=== PATIENT | male | born 1950 | race Caucasian/White ===

== ENCOUNTER 2020-03-03 15:22 | Observation (INO) | payer MEDICARE ==
--- NOTE | 2020-03-03 16:51 | ER Document Report ---
ED Medical Screen (RME) - General Chief Complaint: Weakness Stated Complaint: RIGHT LEG WEAKNESS, DIZZINESS Time Seen by Provider: 03/03/20 16:41 Mode of Arrival: Wheelchair Information source: Patient Notes: HPI; 69-year-old male presents to the emergency room complaining of a cough for the past 3 days. States today he started having some dizziness earlier today states he felt like the room was spinning. States while walking to the bathroom he felt very uneasy on his feet states he stumbled hit his right arm on a wall but caught himself from falling. States ever since he has felt like his right leg is weak but denies pain. States he does have a history of peripheral vascular disease to the right leg. Is on blood thinners secondary to CABG. Has not missed any of his medications. He denies any nausea, vomiting no chest pain, no shortness of breath no difficulty breathing. States he is able to walk but feels off balance when he walks. He denies any COVID-19 exposure. PE: Alert and oriented x3. Negative fast exam. Lungs: Clear to auscultation without rales, rhonchi, wheezes. Heart: Regular rate rhythm without murmurs, rubs, gallops. Able to fully lift and extend right leg without difficulty. Full sensation to painful stimuli bilateral upper and lower extremities. I have greeted and performed a rapid initial assessment of this patient. A comprehensive ED assessment and evaluation of the patient, analysis of test results and completion of the medical decision making process will be conducted by additional ED providers. I have specifically instructed the patient or family members with the patient to immediately return to any nursing staff should anything change in the patient's condition or with their chief complaint. TRAVEL OUTSIDE OF THE [place] IN LAST 30 DAYS: No - Related Data Allergies/Adverse Reactions: No Known Allergies Allergy (Unverified 03/03/20 16:33) Physical Exam - Vital signs Vitals: Temp Pulse Resp BP Pulse Ox 98.1 F 72 16 140/77 H 97 03/03/20 16:27 03/03/20 16:27 03/03/20 16:27 03/03/20 16:27 03/03/20 16:27 Course - Vital Signs Vital signs: Temp Pulse Resp BP Pulse Ox 98.1 F 72 16 140/77 H 97 03/03/20 16:27 03/03/20 16:27 03/03/20 16:27 03/03/20 16:27 03/03/20 16:27
--- NOTE | 2020-03-03 17:16 | RADIOLOGY REPORT (SQ) ---
EXAM DESCRIPTION: CT HEAD WITHOUT IMAGES COMPLETED DATE/TIME: 03/03/2020 5:03 pm REASON FOR STUDY: dizzy COMPARISON: None. TECHNIQUE: Axial images acquired through the brain without intravenous contrast. Images reviewed wi th bone, brain and subdural windows. Additional sagittal and coronal reconstructions were generated. Images stored on PACS. All CT scanners at this facility use dose modulation, iterative reconstruction, and/or weight based d osing when appropriate to reduce radiation dose to as low as reasonably achievable (ALARA). [facility]: Dose Right [facility]: CareDose [facility]: Dose Right [facility]: Teradose 4D [facility]: Smart TechnoSpin RADIATION DOSE: CT Rad equipment meets quality standard of care and radiation dose reduction techniq ues were employed. CTDIvol: 53.2 mGy. DLP: 964 mGy-cm. mGy. LIMITATIONS: None. FINDINGS: VENTRICLES: Prominent. CEREBRUM: No masses. No hemorrhage. No midline shift. Areas of low density in the white matter mos t likely due to chronic micro-vascular ischemic change. No evidence for acute infarction. CEREBELLUM: No masses. No hemorrhage. Focal encephalomalacia involving the right inferior cerebella r hemisphere, consistent with sequela of remote ischemic injury. No evidence for acute infarction. EXTRAAXIAL SPACES: Mild age-related involutional change. No fluid collections. No masses. ORBITS AND GLOBE: No intra- or extraconal masses. Normal contour of globe without masses. CALVARIUM: No fracture. PARANASAL SINUSES: No fluid or mucosal thickening. SOFT TISSUES: No mass or hematoma. OTHER: No other significant finding. IMPRESSION: No acute intracranial abnormality. Right cerebellar encephalomalacia, consistent with s equela previous ischemic injury. Background of mild chronic microvascular and age-related involution al change. EVIDENCE OF ACUTE STROKE: NO. TECHNICAL DOCUMENTATION: JOB ID: [id number] Quality ID # [id number]: Final reports with documentation of one or more dose reduction techniques (e.g., Au tomated exposure control, adjustment of the mA and/or kV according to patient size, use of iterative reconstruction technique) 2010 [employer]- All Rights Reserved Reading location - IP/workstation name: [email or web address]
--- NOTE | 2020-03-03 17:36 | RADIOLOGY REPORT (SQ) ---
EXAM DESCRIPTION: CHEST 2 VIEWS IMAGES COMPLETED DATE/TIME: 03/03/2020 5:21 pm REASON FOR STUDY: cough COMPARISON: None. EXAM PARAMETERS: NUMBER OF VIEWS: two views TECHNIQUE: Digital Frontal and Lateral radiographic views of the chest acquired. RADIATION DOSE: NA LIMITATIONS: none FINDINGS: LUNGS AND PLEURA: No opacities, masses or pneumothorax. No pleural effusion. MEDIASTINUM AND HILAR STRUCTURES: Ectatic ascending aorta. HEART AND VASCULAR STRUCTURES: Heart normal size. No evidence for failure. BONES: No acute findings. HARDWARE: Midline surgical changes. OTHER: No other significant finding. IMPRESSION: No evidence of acute cardiopulmonary abnormality. TECHNICAL DOCUMENTATION: JOB ID: [id number] 2010 [employer]- All Rights Reserved Reading location - IP/workstation name: [email or web address]
[2020-03-03 18:34] LABS: ABSOLUTE BASOPHILS # (AUTO) 0.1 10^3/uL (0.0-0.2); ABSOLUTE EOSINOPHILS # (AUTO) 0.1 10^3/uL (0.0-0.6); ABSOLUTE LYMPHOCYTES (AUTO) 1.9 10^3/uL (0.5-4.7); ABSOLUTE MONOCYTES (AUTO) 0.6 10^3/uL (0.1-1.4); ABSOLUTE NEUT (AUTO) 6.6 10^3/uL (1.7-8.2); BASOPHILS % (AUTO) 0.6 % (0-2); HEMATOCRIT 44.8 % (37.9-51.0); LYMPHOCYTES % (AUTO) 20.7 % (13-45); MEAN CORPUSCULAR HEMOGLOBIN 30.5 pg (27.0-33.4); MEAN CORPUSCULAR HGB CONC 33.5 g/dL (32.0-36.0); MEAN CORPUSCULAR VOLUME 91 fl (80-97); MONOCYTES % (AUTO) 6.5 % (3-13); PLATELET COUNT 230 10^3/uL (150-450); RED BLOOD COUNT 4.91 10^6/uL (4.35-5.55); RED CELL DISTRIBUTION WIDTH 13.7 % (11.5-14.0); SEGMENTED NEUTROPHILS % (AUTO) 71.2 % (42-78); TOTAL CELLS COUNTED % (AUTO) 100 %; WHITE BLOOD COUNT 9.3 10^3/uL (4.0-10.5)
[2020-03-03 18:49] LABS: INTERNATIONAL RATION (INR) 1.02; PROTHROMBIN TIME 13.6 SEC (11.4-15.4)
[2020-03-03 18:53] LABS: ALBUMIN 4.4 g/dL (3.5-5.0); ALKALINE PHOSPHATASE 45 U/L (38-126); ANION GAP 11 (5-19); ASPARTATE AMINO TRANSFERASE 36 U/L (17-59); BILIRUBIN,DIRECT 0.2 mg/dL (0.0-0.4); BILIRUBIN,TOTAL 0.8 mg/dL (0.2-1.3); BLOOD UREA NITROGEN 15 mg/dL (7-20); CALCIUM 10.2 mg/dL (8.4-10.2); CARBON DIOXIDE 26 mmol/L (22-30); CHLORIDE 105 mmol/L (98-107); GLUCOSE 97 mg/dL (75-110); POTASSIUM 4.1 mmol/L (3.6-5.0); TOTAL PROTEIN 7.7 g/dL (6.3-8.2)
--- NOTE | 2020-03-03 21:37 | EKG REPORT ---
SEVERITY:- ABNORMAL ECG - ATRIAL FIBRILLATION, V-RATE 51-87 LEFT BUNDLE BRANCH BLOCK : Confirmed by: Arvind Denny MD 03-Mar-2020 21:36:18
[2020-03-04 01:27] LABS: APPEARANCE,URINE CLEAR; BILIRUBIN,URINE NEGATIVE (NEGATIVE); COLOR,URINE YELLOW; GLUCOSE, URINE >=500 mg/dL (NEGATIVE); KETONES,URINE NEGATIVE (NEGATIVE); LEUKOCYTE ESTERASE,URINE NEGATIVE (NEGATIVE); NITRITE,URINE NEGATIVE (NEGATIVE); PROTEIN,URINE NEGATIVE (NEGATIVE); URINE SPECIFIC GRAVITY 1.028; UROBILINOGEN,URINE NEGATIVE mg/dL (<2.0)
--- NOTE | 2020-03-04 03:49 | ER Document Report ---
ED General - General Chief Complaint: Numbness Stated Complaint: RIGHT LEG WEAKNESS, DIZZINESS Time Seen by Provider: 03/03/20 16:41 Mode of Arrival: Wheelchair Information source: Patient Notes: Patient presents to the ER for evaluation of sudden onset of dizziness with poor depth perception and right leg heaviness that began approximately 1 hour prior to arrival. According to the patient, the symptoms had resolved by the time he got to the hospital. The pit note indicates that he felt like the room was spinning but he tells me that this is not the case. He states he feels as if the room was moving up and down rapidly. The patient initially said he was on blood thinners but later states that his medication is metoprolol and is not a blood thinner. He has had an PR and does have a history of a CABG. He does not have a history of atrial fibrillation. He denies shortness of breath. He denies chest pain. He denies nausea or vomiting. He denies fever. He says he has had a mild cough intermittently over the last several days but that this has not been a significant issue. No known COVID-19 exposures. Nursing notes reviewed and past medical, social, and family histories reviewed and validated. TRAVEL OUTSIDE OF THE [place] IN LAST 30 DAYS: No - Related Data Allergies/Adverse Reactions: No Known Allergies Allergy (Verified 03/03/20 20:20) Past Medical History - General Information source: Patient - Social History Smoking Status: Never Smoker Cigarette use (# per day): No Chew tobacco use (# tins/day): No Frequency of alcohol use: None Drug Abuse: None Lives with: Family Family History: Reviewed & Not Pertinent Patient has suicidal ideation: No Patient has homicidal ideation: No - Past Medical History Cardiac Medical History: Reports: Hx Coronary Artery Disease, Hx Heart Attack, Hx Hypertension Pulmonary Medical History: Reports: None EENT Medical History: Reports: None Neurological Medical History: Reports: None Endocrine Medical History: Reports: Hx Diabetes Mellitus Type 2 Renal/ Medical History: Reports: None Malignancy Medical History: Reports None GI Medical History: Reports: None Musculoskeletal Medical History: Reports None Skin Medical History: Reports None Psychiatric Medical History: Reports: None Traumatic Medical History: Reports: None Infectious Medical History: Reports: None Past Surgical History: Reports: None - Immunizations Immunizations up to date: Yes Hx Diphtheria, Pertussis, Tetanus Vaccination: Yes Review of Systems - Review of Systems Notes: Constitutional: Negative for fever. HENT: Negative for sore throat. Eyes: Negative for visual changes. Cardiovascular: Negative for chest pain. Respiratory: Negative for shortness of breath. Gastrointestinal: Negative for abdominal pain, vomiting or diarrhea. Genitourinary: Negative for dysuria. Musculoskeletal: Negative for back pain. Skin: Negative for rash. Neurological: Positive for unilateral weakness. Positive for dizziness. 10 point ROS negative except as marked above and in HPI. Physical Exam - Vital signs Vitals: Temp Pulse Resp BP Pulse Ox 98.1 F 72 16 140/77 H 97 03/03/20 16:27 03/03/20 16:27 03/03/20 16:27 03/03/20 16:27 03/03/20 16:27 - Notes Notes: CONSTITUTIONAL: Well appearing. No acute distress. SKIN: Warm, dry, and intact without rash EYES: Extraocular movements are grossly intact, clear conjunctiva HENT: Normocephalic, atraumatic, moist mucus membranes NECK: No obvious swelling, normal range of motion PULMONARY: Normal chest rise and fall. Breath sounds clear and equal bilaterally. No respiratory distress or stridor CARDIOVASCULAR: Regular rate. No murmurs, rubs, gallops. Distal extremities are warm and well perfused. ABDOMINAL: Soft, nontender NEUROLOGIC: Normal speech, moves all extremities. Cranial nerves are within normal limits. Hospital Attendant strength strong and equal in the upper extremities bilaterally. There is good strength and sensation in bilateral lower extremities. There is no arm or leg drift noted. MUSCULOSKELETAL: No gross deformities, atraumatic PSYCHIATRIC: Normal mood and affect Course - Re-evaluation Re-evalutation: 03/04/20 04:17 This case was discussed with Dr. Gray who agrees to evaluate the patient in the emergency room for admission. - Vital Signs Vital signs: Temp Pulse Resp BP Pulse Ox 98.1 F 67 13 137/85 H 97 03/04/20 04:05 03/04/20 03:00 03/04/20 05:01 03/04/20 05:00 03/04/20 05:01 - Laboratory Results Result Diagrams: 03/03/20 16:02 03/03/20 16:02 Laboratory Results Interpreted: 03/03/20 22:44 Urine Glucose (UA) >=500 H Urine Ascorbic Acid 40 H Critical Laboratory Results Reviewed: No Critical Results - Radiology Results Critical Radiology Results Reviewed: No Critical Results Discharge - Discharge Clinical Impression: New onset a-fib, TIA (transient ischemic attack) Condition: Stable Disposition: ADMITTED INPATIENT
[2020-03-04] MEDS ORDERED: ACETAMINOPHEN 325 MG TABLET PO PRN (05:10)
[2020-03-04] MEDS ORDERED: ONDANSETRON HCL INJ/PF 4 MG/2 ML SDV IV PRN (05:10)
--- NOTE | 2020-03-04 06:25 | PDOC H&P ---
History of Present Illness Admission Date/PCP: JENNA ROMANO Patient complains of: Dizziness, right lower extremity heaviness and numbness History of Present Illness: CAROLINE GOLDEN is a 69 year old male with a history of CAD status post CABG in 2005, type 2 diabetes, hypertension who now presents reporting dizziness which started around 9 AM yesterday morning. Associated with this patient also reports that he felt some weakness/heaviness of the right lower extremity. He also endorsed numbness and tingling on the right lower extremity. He states that the weakness of his right lower extremity lasted for about an hour and resolved spontaneously but he continued having dizziness which he describes as floating of his head and loss of balance. And when he was trying to walk to the bathroom, he lost his balance and fell down but he denies any passing out or loss of consciousness and he did not hit his head. He denies any change in his speech and does not have any difficulty of swallowing. Patient denies any similar symptoms in the past. He denies chest pain, shortness of breath, orthopnea, PND, palpitation, loss of control of bowel or bladder function. Currently all symptoms have resolved. Past Medical History Cardiac Medical History: Reports: Atrial Fibrillation, Coronary Artery Disease, Myocardial Infarction, Hypertension Pulmonary Medical History: Reports: None EENT Medical History: Reports: None Neurological Medical History: Reports: None Endocrine Medical History: Reports: None, Diabetes Mellitus Type 2 Renal/ Medical History: Reports: None Malignancy Medical History: Reports: None GI Medical History: Reports: None Musculoskeltal Medical History: Reports: None Skin Medical History: Reports: None Psychiatric Medical History: Reports: None Traumatic Medical History: Reports: None Infectious Medical History: Reports: None Past Surgical History Past Surgical History: Reports: None Social History Information Source: Patient Lives with: Family Smoking Status: Never Smoker Frequency of Alcohol Use: None Hx Recreational Drug Use: No Drugs: None - Advance Directive Resuscitation Status: Full Code Family History Family History: Reviewed & Not Pertinent Parental Family History Reviewed: Yes Children Family History Reviewed: Yes Sibling(s) Family History Reviewed.: Yes Medication/Allergy Allergies/Adverse Reactions: morphine Adverse Reaction (Verified 03/04/20 06:40) Irritability Review of Systems Constitutional: ABSENT: chills, fever(s), headache(s), weight gain, weight loss Eyes: ABSENT: visual disturbances Ears: ABSENT: hearing changes Nose, Mouth, and Throat: ABSENT: headache(s), mouth pain, sore throat Cardiovascular: PRESENT: as per HPI Respiratory: ABSENT: cough, hemoptysis Gastrointestinal: ABSENT: abdominal pain, constipation, diarrhea, hematemesis, hematochezia, nausea, vomiting Genitourinary: ABSENT: dysuria, hematuria Musculoskeletal: ABSENT: joint swelling Integumentary: ABSENT: rash, wounds Neurological: PRESENT: as per HPI Psychiatric: ABSENT: anxiety, depression, homidical ideation, suicidal ideation Endocrine: ABSENT: cold intolerance, heat intolerance, polydipsia, polyuria Hematologic/Lymphatic: ABSENT: easy bleeding, easy bruising Physical Exam Vital Signs: Temp Pulse Resp BP Pulse Ox 98.1 F 67 13 137/85 H 97 03/04/20 04:05 03/04/20 03:00 03/04/20 05:01 03/04/20 05:00 03/04/20 05:01 Additional comments: GENERAL APPEARANCE: Alert and oriented x3, in no acute distress HEENT: Normocephalic and atraumatic. No scleral icterus. Moist oral mucosa NECK: Supple. No lymphadenopathy or tenderness. No carotid bruit. No JVD CHEST: Symmetric. Nontender to palpation. LUNGS: Clear with good air entry bilaterally. No wheezing or crackles HEART: Regular rate and rhythm with normal S1 and S2. No murmurs, gallops, or rubs. ABDOMEN: soft, active bowel sounds, no direct or rebound tenderness. No organomegaly detected. EXTREMITIES: No cyanosis, clubbing, or edema. MUSCULOSKELETAL: No deformity, atrophy or swelling noted PSYCHIATRIC: Recent and remote memory is intact. Appropriate mood and affect. SKIN: Warm, dry, and well perfused. No lesions or rashes are noted. NEUROLOGIC: Cranial nerves II through XII were grossly intact Motor: Power was 5/5 in all 4 extremities Sensory: Intact sensation to light and deep touch in all extremities symmetrically Reflex: +2 symmetrically in both upper and lower extremities at knee, ankle biceps and wrist Results Laboratory Results: 03/03/20 16:02 03/03/20 16:02 03/03/20 03/03/20 03/03/20 16:02 16:02 22:44 WBC 9.3 RBC 4.91 Hgb 15.0 Hct 44.8 MCV 91 MCH 30.5 MCHC 33.5 RDW 13.7 Plt Count 230 Seg Neutrophils % 71.2 Sodium 141.5 Potassium 4.1 Chloride 105 Carbon Dioxide 26 Anion Gap 11 BUN 15 Creatinine 0.95 Est GFR ( Amer) > 60 Glucose 97 Calcium 10.2 Total Bilirubin 0.8 AST 36 Alkaline Phosphatase 45 Total Protein 7.7 Albumin 4.4 Urine Color YELLOW Urine Appearance CLEAR Urine pH 5.0 Ur Specific [place] 1.028 Urine Protein NEGATIVE Urine Glucose (UA) >=500 H Urine Ketones NEGATIVE Urine Blood NEGATIVE Urine Nitrite NEGATIVE Ur Leukocyte Esterase NEGATIVE Urine WBC (Auto) 1 Urine RBC (Auto) 1 03/03/20 16:02 Troponin I 0.014 Impressions: Chest X-Ray 03/03/20 16:49 IMPRESSION: No evidence of acute cardiopulmonary abnormality. Head CT 03/03/20 16:49 IMPRESSION: No acute intracranial abnormality. Right cerebellar encephalomalacia, consistent with sequela previous ischemic injury. Background of mild chronic microvascular and age-related involutional change. EVIDENCE OF ACUTE STROKE: NO. Assessment and Plan - Diagnosis (1) TIA (transient ischemic attack) Is this a current diagnosis for this admission?: Yes Plan: Patient presents with dizziness and right lower extremity weakness which has resolved since Was out of window period On presentation Head CT without contrast showed no acute intracranial changes Obtain MRI head, carotid Doppler and echocardiogram Kept him n.p.o. until patient completes swallow eval PT/OT/speech evaluation consult placed Placed him on telemetry monitoring Fall precaution, neurochecks, aspiration precaution Will get lipid panel in the a.m. Started him on aspirin and atorvastatin (2) New onset a-fib Is this a current diagnosis for this admission?: Yes Plan: Patient denies any history of A. fib in the past Maybe contributing to his current symptoms including dizziness and strokelike symptoms EKG on this presentation shows A. fib which is rate controlled Has a [id number] 2 score of 4 We will obtain echo cardiogram in the morning Likely to be started on anticoagulation before discharge (3) Type 2 diabetes mellitus Is this a current diagnosis for this admission?: Yes Plan: On diabetic diet Sliding scale insulin, Accu-Chek and hypoglycemia protocol (4) Hypertension Is this a current diagnosis for this admission?: Yes Plan: Blood pressure is within acceptable range Hold off BP medications for now to allow permissive hypertension (5) CAD (coronary artery disease) Is this a current diagnosis for this admission?: Yes Plan: Currently denies any chest pain Continue aspirin and statin - Time Time Spent with patient: 35 or more minutes Total Critical Time (Minutes): 45 Medications reviewed and adjusted accordingly: Yes Anticipated Discharge Disposition: Home, Self Care Anticipated Discharge Timeframe: within 48 hours - Inpatient Certification Based on my medical assessment, after consideration of the patient's comorbidities, presenting symptoms, or acuity I expect that the services needed warrant INPATIENT care.: Yes I certify that my determination is in accordance with my understanding of Medicare's requirements for reasonable and necessary INPATIENT services [42 CFR 412.3e].: Yes Medical Necessity: Significant Comorbidiites Make Outpatient Treatment Too Ris ky, Need Close Monitoring Due to Risk of Patient Decompensation, Need For Continuous Telemetry Monitoring, Need for Neurological Checks Post Hospital Care: D/C or Transfer Summary
[2020-03-04] MEDS ORDERED: GLUCAGON,HUMAN RECOMB 1 MG INJ IM PRN (06:45)
[2020-03-04] MEDS ORDERED: DEXTROSE 50%-WATER 25 GM/50 ML DISP.SYRIN IV PRN ×2 (06:45)
[2020-03-04] MEDS ORDERED: DEXTROSE 40% GEL 15 GM TUBE PO PRN ×2 (06:45)
--- NOTE | 2020-03-04 08:32 | RADIOLOGY REPORT (SQ) ---
EXAM DESCRIPTION: MRI HEAD WITHOUT IMAGES COMPLETED DATE/TIME: 03/04/2020 7:58 am REASON FOR STUDY: TIA COMPARISON: CT brain dated 03/03/2020 TECHNIQUE: Multiplanar imaging includes non-contrasted T1, T2, FLAIR, and diffusion with ADC map seq uences. Images stored on PACS. LIMITATIONS: None. FINDINGS: ANATOMY: No anomalies. Normal vascular flow voids. Pituitary fossa normal. CSF SPACES: Atrophy induced prominence of ventricles and CSF spaces. CEREBRUM: Scattered periventricular and subcortical white matter lesions consistent with small vessel disease. No focal mass or intracranial hemorrhage. POSTERIOR FOSSA: Old left cerebellar infarct. DIFFUSION IMAGING: Focal small 3 to 4 mm area of high signal intensity on diffusion-weighted images w ith corresponding decreased signal intensity on apparent diffusion images consistent with small infar ct. This is best demonstrated on series 4, image 20 of 54 and series 400, image 20 of 27. ORBITS: No masses. Globes normal. PARANASAL SINUSES: No fluid levels. Mucosa normal. OTHER: No other significant finding. IMPRESSION: 1. 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 This measures only 3 to 4 mm in g reatest diameter. It demonstrates abnormal signal on diffusion weighted sequences. 2. Diffuse cerebral atrophy and mild small vessel ischemic changes. EVIDENCE OF ACUTE STROKE: YES. TECHNICAL DOCUMENTATION: JOB ID: [id number] [employer]- All Rights Reserved Reading location - IP/workstation name: [email or web address]
[2020-03-04 09:04] LABS: CHOLESTEROL 170.18 mg/dL (0-200); TRIGLYCERIDES 123 mg/dL (<150)
[2020-03-04 09:14] LABS: DIRECT LDL 135 mg/dL (<100)
[2020-03-04] MEDS: INSULIN LISPRO 100 UNIT/ML 3 ML VIAL SUBCUT SCH ×4 (10:02→22:52)
[2020-03-04] MEDS: ENOXAPARIN SODIUM INJ 40 MG/0.4 ML DISP.SYRIN SUBCUT SCH (11:55)
[2020-03-04] MEDS: FAMOTIDINE 20 MG TABLET PO SCH ×2 (11:55→22:53)
[2020-03-04] MEDS: ASPIRIN 81 MG TABLET, CHEWABLE PO SCH (11:55)
--- NOTE | 2020-03-04 15:39 | RADIOLOGY REPORT (SQ) ---
EXAM DESCRIPTION: CAROTID DOPPLER IMAGES COMPLETED DATE/TIME: 03/04/2020 3:20 pm REASON FOR STUDY: Transient ischemic attack COMPARISON: None. TECHNIQUE: Grayscale ultrasound, Doppler velocity and spectra, and color Doppler images acquired of the extra-cranial carotid and vertebral arteries. Images stored on PACS. LIMITATIONS: None. FINDINGS: RIGHT CAROTID CCA Velocities: Within normal limits. ICA Velocities Peak systolic 71 cm/s. End diastolic 23 cm/s. Proximal ICA/CCA peak systolic ratio 1.2. Spectra normal. No significant plaque. LEFT CAROTID CCA Velocities: Within normal limits. ICA Velocities Peak systolic 91 cm/s. End diastolic 20 cm/s. Proximal ICA/CCA peak systolic ratio 1.1. Spectra normal. No significant plaque. VERTEBRAL ARTERIES: Antegrade flow. Normal waveforms. SUBCLAVIAN ARTERIES: No finding. OTHER: Tortuous internal carotid arteries bilaterally. IMPRESSION: Tortuous ICAs. No hemodynamically significant stenosis. COMMENT: Quality ID #[id number]: Velocity criteria are extrapolated from the diameter data as defined by t he Society of Radiologists in Ultrasound Consensus Conference. Radiology 2003: 229; 340-346. TECHNICAL DOCUMENTATION: JOB ID: [id number] 2010 [employer]- All Rights Reserved Reading location - IP/workstation name: [email or web address]
--- NOTE | 2020-03-04 18:29 | XCELERA REPORT ---
[address] [address] Transthoracic Echocardiogram Report Name: CAROLINE GOLDEN Age: 69 yrs Gender: Male : 1950 Patient Status: Inpatient Patient Location: [address] [place] [address] Study Date: 03/04/2020 01:39 PM History: PETRA Height: 69 in Weight: 180 lb BSA: 2.0 m2 Procedure: A complete two-dimensional transthoracic echocardiogram was performed (2D, M-mode, spectral and color flow Doppler). The study was technically difficult with many images being suboptimal in quality. Reason For Study: TIA Previous Evaluation: No previous studies were available. History: TIA. Ordering Physician: CASTILLO LUNA Performed By: Jojo Boo Interpretation Summary Left ventricular systolic function is mild to moderately reduced. The Ejection Fraction estimate is 35-40% The right ventricular systolic function is normal. There is a mild amount of mitral regurgitation A bicuspid aortic valve cannot be excluded. There is no aortic valve stenosis There is a trace amount of aortic regurgitation There is a trace amount of tricuspid regurgitation There is no pericardial effusion. MMode/2D Measurements & Calculations RVDd: 2.4 cm LVIDd: 6.4 cm FS: 20.1 % Ao root diam: 3.3 cm IVSd: 1.2 cm LVIDs: 5.1 cm EDV(Teich): 206.9 ml Ao root area: 8.7 cm2 LVPWd: 1.1 cm ESV(Teich): 123.6 ml EF(Teich): 40.3 % Doppler Measurements & Calculations MV E max marcelle: MV dec slope: Ao V2 max: LV V1 max P.2 cm/sec 502.3 cm/sec2 107.9 cm/sec 1.8 mmHg MV dec time: 0.16 secAo max PG: LV V1 max: 4.7 mmHg 67.4 cm/sec PA V2 max: 66.5 cm/sec PA max P.8 mmHg Left Ventricle The left ventricle is moderately dilated. There is mild to moderate concentric left ventricular hypertrophy. Left ventricular systolic function is mild to moderately reduced. The Ejection Fraction estimate is 35-40%. There is anterior wall akinesis. There is proximal anterior wall akinesis. There is mid to distal anterior wall akinesis. Right Ventricle The right ventricle is grossly normal size. The right ventricular systolic function is normal. Atria The right atrium is mildly dilated. The left atrium is mildly dilated. The interatrial septum is intact with no evidence for an atrial septal defect. There is no Doppler evidence for an interatrial shunt. Mitral Valve The mitral valve is grossly normal. There is no mitral valve stenosis. There is a mild amount of mitral regurgitation. Aortic Valve A bicuspid aortic valve cannot be excluded. There is no aortic valve stenosis. There is a trace amount of aortic regurgitation. Tricuspid Valve The tricuspid valve is normal in structure and function. There is a trace amount of tricuspid regurgitation. Tricuspid regurgitation jet envelope not well defined to measure RV systolic pressure accurately. Pulmonic Valve The pulmonic valve is normal in structure and function. There is no pulmonic valvular stenosis. There is a trace or physiologic amount of pulmonic regurgitation. Great Vessels The aortic root is normal size. The inferior vena cava appeared normal and decreased < 50% with respiration (RAP 10-15 mmHg). Effusions There is no pericardial effusion. : CASTILLO LUNA Anil
[2020-03-04] MEDS: MEMANTINE HCL 10 MG TABLET PO SCH (19:24)
[2020-03-04] MEDS ORDERED: RIVASTIGMINE TARTRATE 1.5 MG CAPSULE PO SCH (22:00)
[2020-03-04] MEDS ORDERED: METOPROLOL SUCCINATE 50 MG TAB.SR.24H PO SCH (22:00)
[2020-03-04] MEDS ORDERED: ATORVASTATIN CALCIUM 40 MG TABLET PO SCH (22:00)
[2020-03-04] MEDS: METOPROLOL SUCCINATE 25 MG TAB.SR.24H PO SCH (22:53)
[2020-03-04] MEDS: ENALAPRIL MALEATE 5 MG TABLET PO SCH (22:53)
[2020-03-04] MEDS: CILOSTAZOL 100 MG TABLET PO SCH (22:53)
[2020-03-05] MEDS ORDERED: GLIMEPIRIDE 4 MG TABLET PO SCH (08:00)
[2020-03-05] MEDS: INSULIN LISPRO 100 UNIT/ML 3 ML VIAL SUBCUT SCH (08:40)
--- NOTE | 2020-03-05 09:38 | PDOC DISCHARGE SUMMARY ---
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 Is this a current diagnosis for this admission?: Yes (3) Atrial fibrillation Is this a current diagnosis for this admission?: Yes (4) Cardiomyopathy Is this a current diagnosis for this admission?: Yes (5) CAD (coronary artery disease) Is this a current diagnosis for this admission?: Yes (6) Hypertension Is this a current diagnosis for this admission?: Yes (7) Type 2 diabetes mellitus Is this a current diagnosis for this admission?: Yes - Additional Information Resuscitation Status: Full Code Discharge Diet: Cardiac, Diabetic Discharge Activity: Slowly Increase Activity Referrals: TERESITA JIMENEZ MD [ASSOCIATE] - CHAPO PARIKH PA [Primary Care Provider] - Follow up as needed Prescriptions: Apixaban [Eliquis 5 mg Tablet] 5 mg PO Q12 #60 tablet Atorvastatin Calcium [Lipitor 40 mg Tablet] 40 mg PO QHS #30 tablet Home Medications: Aspirin [Ecotrin 81 mg EC Tablet] 81 mg PO DAILY 03/04/20 Cilostazol [Pletal 100 mg Tablet] 100 mg PO BID 03/04/20 Empagliflozin [Jardiance] 25 mg PO DAILY 03/04/20 Enalapril Maleate [Vasotec 5 mg Tablet] 5 mg PO BID 03/04/20 Ergocalciferol (Vitamin D2) [Drisdol 50,000 unit (1.25MG) Capsule] 50,000 unit PO FR@1000 03/04/20 Glimepiride [Amaryl 4 mg Tablet] 4 mg PO BID 03/04/20 Memantine HCl [Namenda 10 mg Tablet] 10 mg PO BID 03/04/20 Metoprolol Succinate [Toprol Xl 50 mg Tab.sr] 25 mg PO Q12 03/04/20 Rivastigmine Tartrate [Exelon 1.5 mg Capsule] 1.5 mg PO QHS 03/04/20 Saxagliptin HCl/Metformin HCl [Kombiglyze Xr 2.5-1,000 mg Tab] 1 tab PO BID Tamsulosin HCl [Flomax 0.4 mg Cap.sr] 0.4 mg PO DAILY 03/04/20 Vitamin B Complex [Super B-50 Complex] 1 tab PO DAILY 03/04/20 Apixaban [Eliquis 5 mg Tablet] 5 mg PO Q12 #60 tablet 03/05/20 Atorvastatin Calcium [Lipitor 40 mg Tablet] 40 mg PO QHS #30 tablet 03/05/20 History of Present Illiness History of Present Illness: According to admitting provider: CAROLINE GOLDEN is a 69 year old male with a history of CAD status post CABG in 2005, type 2 diabetes, hypertension who now presents reporting dizziness which started around 9 AM yesterday morning. Associated with this patient also reports that he felt some weakness/heaviness of the right lower extremity. He also endorsed numbness and tingling on the right lower extremity. He states keven t the weakness of his right lower extremity lasted for about an hour and resolved spontaneously but he continued having dizziness which he describes as floating of his head and loss of balance. And when he was trying to walk to the bathroom, he lost his balance and fell down but he denies any passing out or loss of consciousness and he did not hit his head. He denies any change in his speech and does not have any difficulty of swallowing. Patient denies any similar symptoms in the past. He denies chest pain, shortness of breath, orthopnea, PND, palpitation, loss of control of bowel or bladder function. Currently all symptoms have resolved. Hospital Course Hospital Course: Patient was admitted to the hospital for evaluation of dizziness and right lower extremity weakness. Patient notably has had a prior stroke which involved his left cerebellum. He volunteers that the residuals from this involved difficulty with memories. On this occasion, his new stroke is in the left centrum semiovale of his left hemisphere. It is small in size. Stroke work-up included carotid ultrasound which revealed a tortuous carotid no evidence of hemodynami willian significant stenosis. Echocardiogram did not show any intramural thrombus. Telemetry review shows that he is in atrial fibrillation type is unspecified as to whether this is longstanding/persistent/paroxysmal. He does state that he has been told that he has a history of irregular heart rhythm before. He thinks he was atrial fibrillation. He sees his time study engineer Dr. White at [facility] in 2 days. I have discussed with him that A. fib puts him at elevated risk of having recurrent strokes and as such we will start him on Eliquis. He denies any history of any significant or major bleeding. I told him to also discuss this new medication with his time study engineer upon his next visit. He is to continue aspirin lifelong. His residuals today quite minimal and he is ambulating through the hallway without any difficulty whatsoever. He has been recommended for outpatient physical therapy by PT has evaluated patient. Patient also has hyperlipidemia with LDL of 135. I have started him on atorvastatin and I have discontinued his fenofibrate as his triglycerides are normal. His echocardiogram also picked up evidence of cardiomyopathy with ejection fraction of 35 to 40%. He denies history of congestive heart failure. On examination today he does not seem to be in acute heart failure. He is already currently on enalapril and Toprol XL. I have given him a copy of his echocardiogram results to take with him to see his time study engineer in 2 days. He is to continue his current cardiac medications. No need for any diuretics at this time. Patient is currently stable and ready for discharge. Physical Exam Vital Signs: Temp Pulse Resp BP Pulse Ox 98.3 F 87 18 112/67 100 03/05/20 07:51 03/05/20 07:51 03/05/20 07:51 03/05/20 07:51 03/05/20 07:51 Intake & Output 03/04/20 03/05/20 03/06/20 06:59 06:59 06:59 Intake Total 670 Balance 670 Weight 83.9 kg 83.9 kg General appearance: PRESENT: no acute distress, cooperative Neck exam: ABSENT: JVD Respiratory exam: PRESENT: clear to auscultation vern. ABSENT: crackles Cardiovascular exam: PRESENT: irregular rhythm, +S1, +S2. ABSENT: tachycardia GI/Abdominal exam: PRESENT: soft. ABSENT: tenderness Musculoskeletal exam: PRESENT: ambulatory Neurological exam: PRESENT: alert, awake, oriented to person, oriented to place, oriented to time, oriented to situation, CN II-XII grossly intact, motor sensory deficit - very mild RLE weakness, normal gait. ABSENT: abnormal gait, ataxia Psychiatric exam: ABSENT: agitated, anxious Results Laboratory Results: WBC 9.3 10^3/uL (4.0-10.5) 03/03/20 16:02 RBC 4.91 10^6/uL (4.35-5.55) 03/03/20 16:02 Hgb 15.0 g/dL (13.5-17.0) 03/03/20 16:02 Hct 44.8 % (37.9-51.0) 03/03/20 16:02 MCV 91 fl (80-97) 03/03/20 16:02 MCH 30.5 pg (27.0-33.4) 03/03/20 16:02 MCHC 33.5 g/dL (32.0-36.0) 03/03/20 16:02 RDW 13.7 % (11.5-14.0) 03/03/20 16:02 Plt Count 230 10^3/uL (150-450) 03/03/20 16:02 Lymph % (Auto) 20.7 % (13-45) 03/03/20 16:02 [place] % (Auto) 6.5 % (3-13) 03/03/20 16:02 Eos % (Auto) 1.0 % (0-6) 03/03/20 16:02 Baso % (Auto) 0.6 % (0-2) 03/03/20 16:02 Absolute Neuts (auto) 6.6 10^3/uL (1.7-8.2) 03/03/20 16:02 Absolute Lymphs (auto) 1.9 10^3/uL (0.5-4.7) 03/03/20 16:02 Absolute Monos (auto) 0.6 10^3/uL (0.1-1.4) 03/03/20 16:02 Absolute Eos (auto) 0.1 10^3/uL (0.0-0.6) 03/03/20 16:02 Absolute Basos (auto) 0.1 10^3/uL (0.0-0.2) 03/03/20 16:02 Seg Neutrophils % 71.2 % (42-78) 03/03/20 16:02 PT 13.6 SEC (11.4-15.4) 03/03/20 16:02 INR 1.02 03/03/20 16:02 Sodium 141.5 mmol/L (137-145) 03/03/20 16:02 Potassium 4.1 mmol/L (3.6-5.0) 03/03/20 16:02 Chloride 105 mmol/L (98-107) 03/03/20 16:02 Carbon Dioxide 26 mmol/L (22-30) 03/03/20 16:02 Anion Gap 11 (5-19) 03/03/20 16:02 BUN 15 mg/dL (7-20) 03/03/20 16:02 Creatinine 0.95 mg/dL (0.52-1.25) 03/03/20 16:02 Est GFR ( Amer) > 60 (>60) 03/03/20 16:02 Est GFR (MDRD) Non-Af > 60 (>60) 03/03/20 16:02 Glucose 97 mg/dL (75-110) 03/03/20 16:02 POC Glucose 240 mg/dL (70-110) H 03/05/20 07:33 Hemoglobin A1c % 7.4 % (4.7-6.0) H 03/04/20 08:15 Calcium 10.2 mg/dL (8.4-10.2) 03/03/20 16:02 Total Bilirubin 0.8 mg/dL (0.2-1.3) 03/03/20 16:02 Direct Bilirubin 0.2 mg/dL (0.0-0.4) 03/03/20 16:02 Neonat Total Bilirubin Not Reportable 03/03/20 16:02 Neonat Direct Bilirubin Not Reportable 03/03/20 16:02 Neonat Indirect Bili Not Reportable 03/03/20 16:02 AST 36 U/L (17-59) 03/03/20 16:02 ALT 40 U/L (<50) 03/03/20 16:02 Alkaline Phosphatase 45 U/L (38-126) 03/03/20 16:02 Troponin I < 0.012 ng/mL 03/04/20 11:57 Total Protein 7.7 g/dL (6.3-8.2) 03/03/20 16:02 Albumin 4.4 g/dL (3.5-5.0) 03/03/20 16:02 Triglycerides 123 mg/dL (<150) 03/04/20 08:15 Cholesterol 170.18 mg/dL (0-200) 03/04/20 08:15 LDL Cholesterol Direct 135 mg/dL (<100) H 03/04/20 08:15 VLDL Cholesterol 25.0 mg/dL (10-31) 03/04/20 08:15 HDL Cholesterol 35 mg/dL (>40) L 03/04/20 08:15 Urine Color YELLOW 03/03/20 22:44 Urine Appearance CLEAR 03/03/20 22:44 Urine pH 5.0 (5.0-9.0) 03/03/20 22:44 Ur Specific [place] 1.028 03/03/20 22:44 Urine Protein NEGATIVE mg/dL (NEGATIVE) 03/03/20 22:44 Urine Glucose (UA) >=500 mg/dL (NEGATIVE) H 03/03/20 22:44 Urine Ketones NEGATIVE mg/dL (NEGATIVE) 03/03/20 22:44 Urine Blood NEGATIVE (NEGATIVE) 03/03/20 22:44 Urine Nitrite NEGATIVE (NEGATIVE) 03/03/20 22:44 Urine Bilirubin NEGATIVE (NEGATIVE) 03/03/20 22:44 Urine Urobilinogen NEGATIVE mg/dL (<2.0) 03/03/20 22:44 Ur Leukocyte Esterase NEGATIVE (NEGATIVE) 03/03/20 22:44 Urine WBC (Auto) 1 /HPF 03/03/20 22:44 Urine RBC (Auto) 1 /HPF 03/03/20 22:44 Urine Mucus (Auto) RARE /LPF 03/03/20 22:44 Urine Ascorbic Acid 40 (NEGATIVE) H 03/03/20 22:44 03/03/20 03/04/20 03/04/20 16:02 08:15 11:57 Troponin I 0.014 < 0.012 < 0.012 Impressions: Chest X-Ray 03/03/20 16:49 IMPRESSION: No evidence of acute cardiopulmonary abnormality. Head CT 03/03/20 16:49 IMPRESSION: No acute intracranial abnormality. Right cerebellar encephalomalacia, consistent with sequela previous ischemic injury. Background of mild chronic microvascular and age-related involutional change. EVIDENCE OF ACUTE STROKE: NO. Carotid Doppler Study 03/04/20 00:00 IMPRESSION: Tortuous ICAs. No hemodynamically significant stenosis. Head MRI 03/04/20 00:00 IMPRESSION: 1. 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 This measures only 3 to 4 mm in greatest diameter. It demonstrates abnormal signal on diffusion weighted sequences. 2. Diffuse cerebral atrophy and mild small vessel ischemic changes. EVIDENCE OF ACUTE STROKE: YES. Plan Time Spent: Greater than 30 Minutes Stroke Is this a Stroke Patient?: Yes Stroke Pt being discharged on Anti-thrombolytic therapy?: Yes Stroke Pt being discharged on Anti-coagulation therapy?: Yes Stroke Pt being discharged on Statins?: Yes Acute Heart Failure Is this a Heart Failure Patient?: No
[2020-03-05] MEDS ORDERED: TAMSULOSIN HCL 0.4 MG CAP.SR.24H PO SCH (10:00)
[2020-03-05] MEDS ORDERED: CLOPIDOGREL BISULFATE 75 MG TABLET PO SCH (10:00)
[2020-03-05 10:42] VITALS: BP 112/67
[2020-03-05] MEDS: ASPIRIN 81 MG TABLET, CHEWABLE PO SCH (10:46)
[2020-03-05] MEDS: ENOXAPARIN SODIUM INJ 40 MG/0.4 ML DISP.SYRIN SUBCUT SCH (10:47)
[2020-03-05] MEDS: FAMOTIDINE 20 MG TABLET PO SCH (10:47)
[2020-03-05] MEDS: METOPROLOL SUCCINATE 25 MG TAB.SR.24H PO SCH (10:47)
[2020-03-05] MEDS: MEMANTINE HCL 10 MG TABLET PO SCH (10:47)
[2020-03-05] MEDS: CILOSTAZOL 100 MG TABLET PO SCH (10:47)
[2020-03-05] MEDS: ENALAPRIL MALEATE 5 MG TABLET PO SCH (10:48)
[2020-03-06] MEDS ORDERED: ERGOCALCIFEROL (VITAMIN D2) 50000 UNIT (1.25 MG) CAPSULE PO SCH (10:00)
== END 2020-03-05 13:18 | disposition home or self-care (01) ==
LOC: ER 15:22 → EH 03-04 05:23 → 5TH 03-04 12:31
PROVIDERS: ADMIT Student in an Organized Health Care Education/Training Program; ATTEND Internal Medicine
DX: I63.9 Cerebral infarction, unspecified (principal); M62.81 Muscle weakness (generalized); R20.0 Anesthesia of skin; I48.91 Unspecified atrial fibrillation; I42.9 Cardiomyopathy, unspecified; I25.10 Atherosclerotic heart disease of native coronary artery without angina pectoris; I10 Essential (primary) hypertension; E11.9 Type 2 diabetes mellitus without complications; Z79.82 Long term (current) use of aspirin; Z79.899 Other long term (current) drug therapy; Z95.1 Presence of aortocoronary bypass graft; I25.2 Old myocardial infarction
CPT/HCPCS: 93005; 99285; 36415 ×2; 82962 ×2; 85025; 85610; 80053; 81001; 84484 ×2; 83036; 80061; 93306; 93880; 70551; 71046; 70450; 93010; 97116; 97161; 97165; G0378 ×3; A9270 ×9; J1650; J1815; J3490